=== PATIENT | female | born 1995 | race American Indian/Alaskan Native ===

== ENCOUNTER 2021-05-05 12:45 | Emergency (ER) | payer BC, OTHER ==
[2021-05-05 13:28] VITALS: BP 121/77
[2021-05-05 14:57] LABS: Basophils % (Auto) 0.5 % (0.0-1.8); Eosinophils # (Auto) 0.1 K/mm3 (0.0-0.4); Eosinophils % (Auto) 1.1 % (0.0-4.3); Hematocrit 39.1 % (30.3-42.9); Hemoglobin 13.1 gm/dl (10.1-14.3); Lymphocytes # (Auto) 2.2 K/mm3 (1.2-5.4); Lymphocytes % (Auto) 22.2 % (13.4-35.0); Mean Corpuscular HGB Conc 33 % (30-34); Mean Corpuscular Volume 91 fl (79-97); Monocytes # (Auto) 0.5 K/mm3 (0.0-0.8); Monocytes % (Auto) 5.3 % (0.0-7.3); Platelet Count 190 K/mm3 (140-440); Red Blood Count 4.28 M/mm3 (3.65-5.03); Red Cell Distribution Width 16.2 % (13.2-15.2)
[2021-05-05 15:14] LABS: Alanine Aminotransferase 8 units/L (7-56); Blood Urea Nitrogen 11 mg/dL (7-17); Calcium 9.6 mg/dL (8.4-10.2); Hemolysis Index 3
[2021-05-05 15:19] LABS: BUN/Creatinine Ratio 18
--- NOTE | 2021-05-05 16:11 | Event Note ---
ED Screening Note Date of service: 05/05/21 Time: 16:08 ED Screening Note: 26-year-old female () patient presents to the emergency department with complaints of a syncopal episode yesterday followed by the onset of nausea, vomiting, and generalized weakness. Patient found out about her 2 days ago. She cannot recall the exact date of her last menstrual period but estimates it may have been in early February. Last 2 pregnancies carried to term without complications. Patient has not been evaluated by an licensed plumber or undergone an ultrasound during this . General: Awake, appropriately interactive, no acute distress. Neck: Supple. Full range of motion intact. Cardiovascular: Normal peripheral perfusion. Pulmonary: No respiratory distress. Patient is speaking normally without use of accessory muscles. Skin: No apparent rashes or lesions. Neurological: No facial asymmetry. Speech is clear. Follows commands. Patient is alert and oriented. Musculoskeletal: Moves all four extremities spontaneously with normal range of motion. Psych: Cooperative. Appropriate mood and affect. I have greeted and performed a focused rapid initial assessment of this patient. A comprehensive ED assessment and evaluation of the patient, analysis of all test results, and completion of the medical decision-making process will be conducted by additional ED providers. This initial assessment/diagnostic orders/clinical plan/treatment(s) is/are subject to change based on patients health status, clinical progression and re-assessment. Further treatment and workup at subsequent clinical provider's discretion. Patient/guardian urged not to elope from the ED as their condition may be serious if not clinically assessed and managed.
--- NOTE | 2021-05-05 18:20 | Ultrasound Report ---
ULTRASOUND OBSTETRIC INDICATION / CLINICAL INFORMATION: N/V + syncope, LMP February, +hcg 2 days ago, no OB. Clinical Gestational Age (GA): 8.0 weeks.days TECHNIQUE: Transabdominal and Transvaginal. COMPARISON: None available. FINDINGS: GESTATIONAL SAC: Well-defined oval shape and intrauterine in location. YOLK SAC: No significant abnormality. EMBRYO/FETUS: No significant abnormality. - [place]-Rump Length = 1.6 cm = 8.1 weeks.days - Heart Rate, beats per minute (if present) = 158 ADNEXA: The right ovary measures 3.6 x 2.2 x 4.0 cm and is normal in echogenicity. There is a 2.3 cm hypoechoic lesion arising from the right ovary which likely represents a corpus luteal cyst. The left ovary measures 2.7 x 1.4 x 2.6 cm and is normal in echogenicity. FREE FLUID: None. ADDITIONAL FINDINGS: None. IMPRESSION: 1. Single, living intrauterine with estimated sonographic age of 8.1 weeks.days. 2. Suspected 2.3 cm right ovarian corpus luteal cyst. Signer Name: Ad Byrd MD Signed: 05/05/2021 6:16 PM Workstation Name: [id number]
--- NOTE | 2021-05-05 18:20 | Ultrasound Report ---
ULTRASOUND OBSTETRIC INDICATION / CLINICAL INFORMATION: N/V + syncope, LMP February, +hcg 2 days ago, no OB. Clinical Gestational Age (GA): 8.0 weeks.days TECHNIQUE: Transabdominal and Transvaginal. COMPARISON: None available. FINDINGS: GESTATIONAL SAC: Well-defined oval shape and intrauterine in location. YOLK SAC: No significant abnormality. EMBRYO/FETUS: No significant abnormality. - [place]-Rump Length = 1.6 cm = 8.1 weeks.days - Heart Rate, beats per minute (if present) = 158 ADNEXA: The right ovary measures 3.6 x 2.2 x 4.0 cm and is normal in echogenicity. There is a 2.3 cm hypoechoic lesion arising from the right ovary which likely represents a corpus luteal cyst. The left ovary measures 2.7 x 1.4 x 2.6 cm and is normal in echogenicity. FREE FLUID: None. ADDITIONAL FINDINGS: None. IMPRESSION: 1. Single, living intrauterine with estimated sonographic age of 8.1 weeks.days. 2. Suspected 2.3 cm right ovarian corpus luteal cyst. Signer Name: dA Byrd MD Signed: 05/05/2021 6:16 PM Workstation Name: [id number]
[2021-05-05] MEDS ORDERED: FAMOTIDINE 20 MG/2 ML INJ IV ONE (19:19)
[2021-05-05] MEDS ORDERED: SODIUM CHLORIDE 0.9% 1000 ML 1,000 ML IV ONE (19:19)
[2021-05-05] MEDS ORDERED: PROCHLORPERAZINE EDISYLATE 10 MG/2 ML VIAL IV ONE (19:19)
--- NOTE | 2021-05-05 19:29 | Emergency Department Report ---
ED N/V/D HPI - General Chief complaint: Dizziness Stated complaint: PREG WKS ? DIZZY/DEHYDRATION Source: patient Mode of arrival: Ambulatory Limitations: No Limitations - History of Present Illness Initial comments: Patient is a A0 26-year-old -[place] female with no past medical history and who is approximately 8 weeks gestation presents to the ED with complaint of acute onset persistent intermittent intractable nausea and vomiting for the last 1 month, worse in the last 3 days. Patient states that she has not been able to keep anything down in the last 3 days and that in the last 24 hours she has been feeling generalized weakness and near syncopal episodes twice in the last 24 hours. Patient states that in the last 12 hours she has had multiple vomiting episodes and has not been able to keep anything down including food or fluids. Patient denies dizziness, syncope, chest pain, shortness of breath, headache, hematemesis, sore throat, abdominal pain, diarrhea, fever, chills, vaginal bleeding, vaginal discharge, dysuria, urinary frequency and urgency, traumatic injury, change in vision or seizures. MD complaint: nausea, vomiting, other (Lightheadedness and near syncope) -: Sudden, days(s) (Worse in the last 3 days), month(s) (1) Description of Vomiting: food contents, watery, bilious Associated Abdominal Pain: No Location: diffuse Radiation: none Severity: severe Pain Scale: 7 Quality: dull Consistency: intermittent Improves with: none Worsens with: eating, vomiting Context: other (8 weeks gestation) Associated Symptoms: denies other symptoms, loss of appetite, malaise, nausea/vomiting, syncope (Near syncope), weakness. denies: myalgias, chest pain, cough, diaphoresis, fever/chills, headaches, rash, dysuria, shortness of breath - Related Data Previous Rx's Medication Instructions Recorded Last Taken Type Famotidine [Pepcid] 20 mg PO BID #60 tablet 05/05/21 Unknown Rx Promethazine HCl [Phenergan SUPPOS] 25 mg RC Q8H PRN #15 supp.rect 05/05/21 Unknown Rx Promethazine [Phenergan] 25 mg PO Q6HR PRN #40 tab 05/05/21 Unknown Rx Allergies Allergy/AdvReac Type Severity Reaction Status Date / Time No Known Allergies Allergy Unverified 05/05/21 13:25 ED Review of Systems ROS: Stated complaint: PREG WKS ? DIZZY/DEHYDRATION Other details as noted in HPI Constitutional: malaise, weakness, other (Lightheadedness). denies: chills, fever Eyes: denies: eye pain, eye discharge, vision change ENT: denies: ear pain, throat pain Respiratory: denies: cough, shortness of breath, wheezing Cardiovascular: syncope (Near syncope and lightheadedness). denies: chest pain, palpitations Endocrine: no symptoms reported Gastrointestinal: nausea, vomiting, other (Lack of appetite). denies: abdominal pain, diarrhea Genitourinary: denies: urgency, dysuria, discharge Musculoskeletal: denies: back pain, joint swelling, arthralgia Skin: denies: rash, lesions Neurological: denies: headache, weakness, paresthesias Psychiatric: denies: anxiety, depression Hematological/Lymphatic: denies: easy bleeding, easy bruising ED Past Medical Hx - Past Medical History Previous Medical History?: No - Surgical History Past Surgical History?: Yes Additional Surgical History: 2 c-sections - Medications Home Medications: Home Medications Medication Instructions Recorded Confirmed Last Taken Type Famotidine [Pepcid] 20 mg PO BID #60 tablet 05/05/21 Unknown Rx Promethazine HCl [Phenergan SUPPOS] 25 mg RC Q8H PRN #15 supp.rect 05/05/21 Unknown Rx Promethazine [Phenergan] 25 mg PO Q6HR PRN #40 tab 05/05/21 Unknown Rx ED Physical Exam - General Limitations: No Limitations General appearance: alert, in no apparent distress - Head Head exam: Present: atraumatic, normocephalic, normal inspection - Eye Eye exam: Present: normal appearance, PERRL, EOMI - ENT ENT exam: Present: normal exam, normal orophraynx, mucous membranes moist, TM's normal bilaterally, normal external ear exam - Neck Neck exam: Present: normal inspection, full ROM - Respiratory Respiratory exam: Present: normal lung sounds bilaterally. Absent: respiratory distress, wheezes, rales, rhonchi, stridor, chest wall tenderness, accessory muscle use, decreased breath sounds - Cardiovascular Cardiovascular Exam: Present: regular rate, normal rhythm, normal heart sounds. Absent: systolic murmur, diastolic murmur, rubs, gallop - GI/Abdominal GI/Abdominal exam: Present: soft, normal bowel sounds. Absent: tenderness, guarding, rebound, hyperactive bowel sounds, hypoactive bowel sounds, organomegaly - Extremities Exam Extremities exam: Present: normal inspection, full ROM, normal capillary refill - Back Exam Back exam: Present: normal inspection, full ROM. Absent: tenderness, CVA tenderness (R), CVA tenderness (L), muscle spasm, paraspinal tenderness, vertebral tenderness - Neurological Exam Neurological exam: Present: alert, oriented X3, CN II-XII intact, normal gait, reflexes normal - Psychiatric Psychiatric exam: Present: normal affect, normal mood - Skin Skin exam: Present: warm, dry, intact, normal color. Absent: rash ED Course Vital Signs 05/05/21 13:27 Temperature 98.1 F Pulse Rate 63 Respiratory 18 Rate Blood Pressure 121/77 [Right] O2 Sat by Pulse 100 Oximetry ED Medical Decision Making - Lab Data Result diagrams: 05/05/21 14:45 05/05/21 14:45 - Radiology Data [facility] [address] [place] [address] Ultrasound Report Signed Patient: ELIZA GARCIA MR #: [id number] : 1995 Acct:[id number] Age/Sex: 26 / F ADM Date: 05/05/21 Loc: ED Attending Dr: Ordering Physician: NATHANIEL FELICIANO Date of Service: 05/05/21 Procedure(s): US OB transvaginal Accession Number(s): [id number] cc: NATHANIEL FELICIANO ULTRASOUND OBSTETRIC INDICATION / CLINICAL INFORMATION: N/V + syncope, LMP February, +hcg 2 days ago, no OB. Clinical Gestational Age (GA): 8.0 weeks.days TECHNIQUE: Transabdominal and Transvaginal. COMPARISON: None available. FINDINGS: GESTATIONAL SAC: Well-defined oval shape and intrauterine in location. YOLK SAC: No significant abnormality. EMBRYO/FETUS: No significant abnormality. - [place]-Rump Length = 1.6 cm = 8.1 weeks.days - Heart Rate, beats per minute (if present) = 158 ADNEXA: The right ovary measures 3.6 x 2.2 x 4.0 cm and is normal in echogenicity. There is a 2.3 cm hypoechoic lesion arising from the right ovary which likely represents a corpus luteal cyst. The left ovary measures 2.7 x 1.4 x 2.6 cm and is normal in echogenicity. FREE FLUID: None. ADDITIONAL FINDINGS: None. IMPRESSION: 1. Single, living intrauterine with estimated sonographic age of 8.1 weeks.days. 2. Suspected 2.3 cm right ovarian corpus luteal cyst. Signer Name: Kashmir Byrd MD Signed: 05/05/2021 6:16 PM Workstation Name: [id number] Transcribed By: SS Dictated By: KASHMIR BYRD Electronically Authenticated By: KASHMIR BYRD Signed Date/Time: 05/05/211815 DD/ 12 TD/TT: [facility] [address] [place] [address] Ultrasound Report Signed Patient: ELIZA GARCIA MR #: [id number] : 1995 Acct:[id number] Age/Sex: 26 / F ADM Date: 05/05/21 Loc: ED Attending Dr: Ordering Physician: NATHANIEL FELICIANO Date of Service: 05/05/21 Procedure(s): US OB <= 14 weeks fetus Accession Number(s): [id number] cc: NATHANIEL FELICIANO ULTRASOUND OBSTETRIC INDICATION / CLINICAL INFORMATION: N/V + syncope, LMP February, +hcg 2 days ago, no OB. Clinical Gestational Age (GA): 8.0 weeks.days TECHNIQUE: Transabdominal and Transvaginal. COMPARISON: None available. FINDINGS: GESTATIONAL SAC: Well-defined oval shape and intrauterine in location. YOLK SAC: No significant abnormality. EMBRYO/FETUS: No significant abnormality. - [place]-Rump Length = 1.6 cm = 8.1 weeks.days - Heart Rate, beats per minute (if present) = 158 ADNEXA: The right ovary measures 3.6 x 2.2 x 4.0 cm and is normal in echogenicity. There is a 2.3 cm hypoechoic lesion arising from the right ovary which likely represents a corpus luteal cyst. The left ovary measures 2.7 x 1.4 x 2.6 cm and is normal in echogenicity. FREE FLUID: None. ADDITIONAL FINDINGS: None. IMPRESSION: 1. Single, living intrauterine with estimated sonographic age of 8.1 weeks.days. 2. Suspected 2.3 cm right ovarian corpus luteal cyst. Signer Name: Kashmir Byrd MD Signed: 05/05/2021 6:16 PM Workstation Name: [id number] Transcribed By: SS Dictated By: KASHMIR BYRD Electronically Authenticated By: KASHMIR BYRD Signed Date/Time: 05/05/211815 DD/ 12 TD/TT: - Medical Decision Making This is a A0 26-year-old -[place] female with no past medical history and who is approximately 8 weeks gestation presents to the ED with complaint of acute onset persistent intermittent intractable nausea and vomiting for the last 1 month, worse in the last 3 days. Patient states that she has not been able to keep anything down in the last 3 days and that in the last 24 hours she has been feeling generalized weakness and near syncopal episodes twice in the last 24 hours. Patient states that in the last 12 hours she has had m ultiple vomiting episodes and has not been able to keep anything down including food or fluids. In the ED, patient is alert and oriented x3 and is not in any distress with normal vital signs. Lab test results were reviewed and are all nonactionable, and hCG quant was [id number]. Transvaginal and ultrasound showed a sngle, living intrauterine with estimated sonographic age of 8.1 weeks.days, and heart rate of 158 bpm; also showed suspected 2.3 cm right ovarian corpus luteal cyst. Patient was treated in the ED with antiemetics and antacids and also given normal saline 1 L IV bolus x1. Orthostatic vital signs were stable. Patient also passed oral fluid challenge in the ED. On reevaluation, patient felt better and was discharged home on antiemetic medications and was given a referral to the [facility] physician manager of selection and assessment for follow-up and further evaluation. Patient was otherwise advised to return to the ED immediately if symptoms get worse. - Differential Diagnosis Dehydration; ; UTI; gastroenteritis; hyperemesis gravidarum Critical care attestation.: If time is entered above; I have spent that time in minutes in the direct care of this critically ill patient, excluding procedure time. ED Disposition Clinical Impression: Moderate hyperemesis gravidarum, Episodic lightheadedness Disposition: DC-01 TO HOME OR SELFCARE Is pt being admited?: No Does the pt Need Aspirin: No Condition: Stable Instructions: Hyperemesis Gravidarum, Morning Sickness, [id number], Near- Syncope, [id number], Dizziness, [id number] Additional Instructions: All lab test results were reviewed and are all nonactionable. Transvaginal ultrasound showed a single live intrauterine with a heart rate of 158 bpm and of approximately 8 weeks and 1 day. Therefore maintain a clear liquid diet for 12 to 24 hours, drink plenty of fluids, take medication as needed for nausea and vomiting and follow-up with your [facility] physician in 3 to 5 days for reevaluation. Return to the ED immediately if symptoms get worse. Prescriptions: Famotidine [Pepcid] 20 mg PO BID #60 tablet Promethazine [Phenergan] 25 mg PO Q6HR PRN #40 tab PRN Reason: Nausea Promethazine HCl [Phenergan SUPPOS] 25 mg RC Q8H PRN #15 supp.rect PRN Reason: Nausea And Vomiting Referrals: GRIFFIN LOVE MD [Staff Physician] - 3-5 Days Time of Disposition: 20:06 Print Language: IRISH
[2021-05-05 19:33] LABS: Bilirubin,Urine NEG (Negative); Blood,Urine NEG (Negative); Color,Urine Yellow (Yellow); Mucus,Urine 3+ /HPF; Protein,Urine <15 mg/dL mg/dL (Negative); Urobilinogen,Urine < 2.0 mg/dL (<2.0)
== END 2021-05-05 20:20 | disposition home or self-care (01) ==
LOC: ED 12:45
DX: O21.0 Mild hyperemesis gravidarum (principal); O26.891 Other specified pregnancy related conditions, first trimester; R42 Dizziness and giddiness; Z3A.08 8 weeks gestation of pregnancy; Z98.890 Other specified postprocedural states; Z79.899 Other long term (current) drug therapy
CPT/HCPCS: 36415; 76801; 76817; 80053; 81001; 83735; 84702; 85025; 86900; 86901; 96361; 96374; 96375; 99284; J0780; J7030